=== PATIENT | male | born 1950 | race Caucasian/White ===

== ENCOUNTER → 2017-07-25 | Outpatient (CLI) | payer BC, MEDICARE ==
[~2017-07-25] MED LIST: REGADENOSON 0.4 MG/5 ML SYRINGE ONE
== END | disposition home or self-care (01) ==
LOC: CFH 12:07
PROVIDERS: ATTEND Internal Medicine Cardiovascular Disease
DX: I10 Essential (primary) hypertension (principal); E78.5 Hyperlipidemia, unspecified
CPT/HCPCS: 78452; 93017; A9502; J2785

== ENCOUNTER 2019-01-21 08:30 | Outpatient (CLI) | payer MEDICARE | END 2019-01-21 23:59 | disposition home or self-care (01) | LOC: STAR 08:30 | PROVIDERS: ATTEND Family Medicine | DX: Z01.818 Encounter for other preprocedural examination (principal); M75.102 Unspecified rotator cuff tear or rupture of left shoulder, not specified as traumatic; R94.31 Abnormal electrocardiogram [ECG] [EKG]; M25.512 Pain in left shoulder; M17.12 Unilateral primary osteoarthritis, left knee; Z96.651 Presence of right artificial knee joint; R00.1 Bradycardia, unspecified | CPT/HCPCS: 93005 ==

== ENCOUNTER 2019-01-26 05:09 | Day surgery (SDC) | payer MEDICARE ==
[~2019-01-26] VITALS: Ht 170.2 cm; Wt 80.8 kg
[2019-01-26 06:07] VITALS: BP 172/77
== END 2019-01-26 13:35 | disposition home or self-care (01) ==
LOC: OUT 05:09
PROVIDERS: ATTEND Orthopaedic Surgery
DX: S46.012A Strain of muscle(s) and tendon(s) of the rotator cuff of left shoulder, initial encounter (principal); S43.432A Superior glenoid labrum lesion of left shoulder, initial encounter; S46.112A Strain of muscle, fascia and tendon of long head of biceps, left arm, initial encounter; M75.42 Impingement syndrome of left shoulder; M65.812 Other synovitis and tenosynovitis, left shoulder; M75.52 Bursitis of left shoulder; J45.909 Unspecified asthma, uncomplicated; I10 Essential (primary) hypertension; E78.5 Hyperlipidemia, unspecified; G40.909 Epilepsy, unspecified, not intractable, without status epilepticus; Z72.89 Other problems related to lifestyle; Z79.891 Long term (current) use of opiate analgesic; Z79.82 Long term (current) use of aspirin; Z79.899 Other long term (current) drug therapy; Z88.8 Allergy status to other drugs, medicaments and biological substances; Z86.73 Personal history of transient ischemic attack (TIA), and cerebral infarction without residual deficits; Z82.3 Family history of stroke; Z82.61 Family history of arthritis; Z82.49 Family history of ischemic heart disease and other diseases of the circulatory system; X50.1XXA Overexertion from prolonged static or awkward postures, initial encounter; Y93.89 Activity, other specified; Y92.39 Other specified sports and athletic area as the place of occurrence of the external cause; Y99.8 Other external cause status
CPT/HCPCS: 29823; 29826; 29827; 64415; C1713; J0171; J0330; J0360; J0690; J1100; J1885; J2250; J2405; J2704; J3010; J3490; J7120

== ENCOUNTER 2019-04-09 11:09 | Emergency (ER) | payer MEDICARE ==
[~2019-04-09] VITALS: Ht 170.2 cm; Wt 83.0 kg
[~2019-04-09 11:09] MED LIST changes: +ALBU90AE INH; +ALPR0.5T7 PO; +AMOX-291 PO; +ASPI-496 PO; +ATOR10TA9 PO; +CARV25TA12 PO; +DOXA2TAB9 PO; +HYDR-3343 PO; +MOME13HF INH; +NAPR220C2 PO; +NEBI10TA3 PO; +PRAS10TA4 PO; -REGADENOSON 0.4 MG/5 ML SYRINGE ONE; +[UNRECOGNIZED DRUG - OTHER] PO
[2019-04-09] MEDS ORDERED: SODIUM CHLORIDE FLUSH 10ML SYR IVF ONE (12:00)
[2019-04-09] MEDS ORDERED: FUROSEMIDE 40 MG/4 ML IVPush ONE (12:00)
[2019-04-09 12:18] LABS: BASOPHILS # (AUTO) 0.03 x10^3/uL (0-0.1); BASOPHILS % (AUTO) 0 % (0-1); EOSINOPHILS # (AUTO) 0.12 x10^3/uL (0-0.4); EOSINOPHILS % (AUTO) 1 % (1-7); LYMPHOCYTES # (AUTO) 1.11 x10^3/uL (1-3.4); LYMPHOCYTES % (AUTO) 11 % (22-44); MD NO; MEAN CORPUSCULAR HEMOGLOBIN 29.4 pg (27.5-34.5); MEAN CORPUSCULAR HGB CONC 32.8 g/dL (33.2-36.2); MEAN CORPUSCULAR VOLUME 89.8 fL (81-97); MONOCYTES # (AUTO) 1.38 x10^3/uL (0.2-0.8); MONOCYTES % (AUTO) 14 % (2-9); NEUTROPHILS # (AUTO) 7.57 x10^3/uL (1.8-6.8); NEUTROPHILS % (AUTO) 74 % (42-75); PLATELET COUNT 267 x10^3/uL (130-400); RED BLOOD COUNT 4.67 x10^6/uL (4.38-5.82)
[2019-04-09] MEDS ORDERED: FUROSEMIDE 40 MG/4 ML ONE (12:22)
[2019-04-09 12:30] LABS: ANION GAP 6 mmol/L (5-15); CALCIUM 9.1 mg/dL (8.5-10.1); CHLORIDE 103 mmol/L (98-107)
[2019-04-09 12:36] LABS: ALANINE AMINOTRANSFERASE 28 U/L (12-78); ALKALINE PHOSPHATASE 121 U/L (45-117); BILIRUBIN,TOTAL 0.8 mg/dL (0.2-1.0); CREATININE 1.16 mg/dL (0.7-1.3); TOTAL PROTEIN 7.7 g/dL (6.4-8.2); TROPONIN I < 0.015 ng/mL (0.000-0.045)
--- NOTE | 2019-04-09 12:51 | NUR ---
ultrasound at bedside for venous doppler study.
[2019-04-09 13:47] VITALS: BP 143/47
== END 2019-04-09 14:41 | disposition home or self-care (01) ==
LOC: ED 14:35
DX: I50.9 Heart failure, unspecified (principal); M79.662 Pain in left lower leg; I10 Essential (primary) hypertension; Z86.73 Personal history of transient ischemic attack (TIA), and cerebral infarction without residual deficits
CPT/HCPCS: 36415; 71045; 80053; 83735; 83880; 84484; 85025; 93005; 93970; 96374; 99284; J1940

== ENCOUNTER → 2019-05-07 | Outpatient (CLI) | payer MEDICARE | END | disposition home or self-care (01) | LOC: RAD 09:54 | PROVIDERS: ATTEND Urology | DX: R97.20 Elevated prostate specific antigen [PSA] (principal); M89.9 Disorder of bone, unspecified | CPT/HCPCS: 78306; A9503 ==

== ENCOUNTER 2019-07-12 08:32 | Outpatient (CLI) | payer MEDICARE ==
[2019-07-12] MEDS ORDERED: MIDAZOLAM 1 MG/ML, 5ML ONE ×2 (08:59→09:00)
[2019-07-12] MEDS ORDERED: FENTANYL PF 100 MCG/2ML ONE (08:59)
[2019-07-12] MEDS ORDERED: FLUMAZENIL 0.1 MG/1 ML, 5ML ONE (09:00)
[2019-07-12] MEDS ORDERED: NALOXONE 1 MG/ML, 2ML ONE (09:00)
== END 2019-07-12 23:59 | disposition home or self-care (01) ==
LOC: RAD 08:32
PROVIDERS: ATTEND Urology
DX: M75.112 Incomplete rotator cuff tear or rupture of left shoulder, not specified as traumatic (principal); I11.0 Hypertensive heart disease with heart failure; I50.9 Heart failure, unspecified; Z88.8 Allergy status to other drugs, medicaments and biological substances
CPT/HCPCS: 73221; 99156; 99157; J2250; J3010; J2310